=== PATIENT | male | born 1950 | race Caucasian/White ===

== ENCOUNTER → 2020-06-10 08:50 | Outpatient (CLI) | payer OTHER, SELFPAY ==
--- NOTE | 2020-06-10 10:00 | ASPOS_PTH ---
PATIENT: MINA WANG LOC: LAB U#:[id number] AGE/SX: 75/M ROOM: RE06/10/[address]: Dr. Zaki Banks MD : [id number] BED: DIS: SPEC #: [id number] RECD: 06/10/20 10:34 STATUS: JENELLE MORRIS #: [id number] ALLA: 06/10/20 10:[address]: Zaki Banks DEPT: CYTOLOGY RECD BY: Estelita Lam Tissues: Neck, NOS Procedures: Surgery Specimen Level IV Cytology Other Fine Needle Asp on Site HEADER OPERATION: CT-guided FNA right posterior neck mass PRE-OP DIAGNOSIS: Right posterior neck mass TISSUE SUBMITTED: Right posterior neck mass DIAGNOSIS CYTOLOGY Fine needle aspiration, right posterior neck mass (smears and cell block): Mature adipose tissue and polymorphous lymphocytes with reactive/degenerative change. See comment. AM:deonna 06/11/2020 COMMENT The specimen is evaluated at the time of biopsy by Dr. Negron. Immediate Evaluation = Mature adipose tissue and polymorphous lymphocytes. The lesion may represent a lipoma or lymph node with fatty/degenerative change. Clinical correlation is suggested. Case has been reviewed in consultation with Dr. Negron who concurs with the above diagnosis. IDC:[facility] CYTOLOGY STUDY Slides are reviewed. CYTOLOGY GROSS Received is 35 ml of light pink fluid labeled with the patient's name and and designated per the requisition as right posterior neck mass. Submitted for cytology preparation including cell block. Five touch imprints (3 DQ and 2 pap) are prepared at the time of core biopsy. / rg 06/10/20 TC:5 CPT: 64792, 65141, 87826, 05687, 29176
== END ==
PROVIDERS: Referring Provider Otolaryngology; Visit Provider Otolaryngology
DX: R22.1 Localized swelling, mass and lump, neck (principal)
CPT/HCPCS: 10021; 88161; 88305

== ENCOUNTER → 2020-09-06 12:07 | Outpatient (CLI) | payer MEDICARE, SELFPAY ==
[2020-09-06] MEDS: Methacholine Chloride 18 ml neb kit INHALATION (12:37)
--- NOTE | 2020-09-07 10:01 | BRONCHALL ---
Bronchoprovocation Challenge - Bronchoprovocation Challenge Bronchoprovocation Challenge: INTRODUCTION: The patient is a 70-year-old male that presents for a methacholine challenge secondary to a diagnosis of chronic cough. Respiratory therapy reported good patient effort and reproducible results. INTERPRETATION: Initial spirometry did not show any evidence of a large airways obstructive ventilatory defect and preserved airflows throughout. The patient was then given progressively increasing doses of methacholine in a standardized fashion. At no point during testing did the patient's FEV1 drop to the threshold criteria that would be considered a positive test. IMPRESSION: Negative methacholine challenge.
== END ==
PROVIDERS: PCP Family Medicine; Referring Provider Internal Medicine Pulmonary Disease; Visit Provider Internal Medicine Pulmonary Disease
DX: R05 Cough (principal)
CPT/HCPCS: 94070; 95070